=== PATIENT | male | born 1980 | race Caucasian/White ===

== ENCOUNTER 2018-05-10 17:30 | Emergency (ER) | payer SELFPAY ==
[~2018-05-10] VITALS: Ht 180.3 cm; Wt 59.0 kg
[2018-05-10 18:36] VITALS: BP 147/74
== END 2018-05-10 18:37 ==
LOC: EME 17:30
DX: F11.23 Opioid dependence with withdrawal (principal); Z87.891 Personal history of nicotine dependence; Z87.898 Personal history of other specified conditions; Z88.0 Allergy status to penicillin
CPT/HCPCS: 99281; 99284